=== PATIENT | female | born 1955 | race Caucasian/White ===

== ENCOUNTER 2021-04-16 16:18 | Emergency (ER) | payer OTHER ==
[~2021-04-16] VITALS: Ht 160 cm; Wt 70.1 kg
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
[2021-04-16] MEDS ORDERED: TETANUS,DIPTH,PERTUSS P/F (BOOSTRIX) 0.5 ML VIAL IM ONE (16:45)
[2021-04-16 16:51] VITALS: BP 136/65
== END 2021-04-16 16:49 | disposition home or self-care (01) ==
LOC: ER FS 16:20
DX: S60.511A Abrasion of right hand, initial encounter (principal); S50.811A Abrasion of right forearm, initial encounter; S50.311A Abrasion of right elbow, initial encounter; R10.32 Left lower quadrant pain; M54.9 Dorsalgia, unspecified; I10 Essential (primary) hypertension; Z23 Encounter for immunization; V29.9XXA Motorcycle rider (driver) (passenger) injured in unspecified traffic accident, initial encounter
CPT/HCPCS: 90715; 99284